=== PATIENT | female | born 1985 | race American Indian/Alaskan Native ===

== ENCOUNTER 2017-12-31 19:46 | Inpatient (IN) | payer BC ==
[2017-12-31] MEDS ORDERED: Lactated Ringer's 1,000 ML IV SCH (20:15)
--- NOTE | 2017-12-31 20:19 | OBHP ---
Datetime: 12/31/2017 19:07 IP Adm Impression: Term, intrauterine ; No Active Labor IP Adm Impression Other: Late Term IP Admit Plan: Admit to unit; Initiate labor induction protocol Admit Comment, IP Provider: 32yo with IUP at 41.1wks presents here today for induction of labor due to late . She currently denies any VB or LOF but feels good movements. car e with [address] with uncomplicated course. PMhx- unremarkable. OBHx: - X1, in 2009 Shx: None O: Appears well, Chest- CTA B/l Abd: Soft, NT, BS- present, No Tenderness [place]- Irrregular. FHR- Category 1, Vtx - presentation, Membranes intact GBS- Negative. Assessment: IUP at 41.1 weeks Early labor GBS - negative. Plan: Admit to LND, Cervidil for cervical ripening. Monitor closely for the onset and progress of labor. Pelvic Type - PN: Adequate Extremities - PN: Normal Abdomen - PN: Normal Back - PN: Normal Breast - PN: Normal Lungs - PN: Normal Heart - PN: Normal Thyroid - PN: Normal Neurologic - PN: Normal HEENT - PN: Normal General - PN: Normal Presentation-Admit: Vertex FHR - Baseline A Provider: 140 Membranes, Provider: Intact Gestation - Est Wks by US: 41.1 Vital Signs Provider: Reviewed IP Chief Complaint: Maternal discomfort NICHD Variability Prov Fetus A: Moderate 6-25bpm NICHD Accel Fetus A IP Provider: 15X15 FHR Category Provider Fetus A: Category I NICHD Decel Fetus A IP Provider: None Genitourinary Exam: Normal DTRs - PN: Normal
[2017-12-31 21:02] LABS: ALB/GLOB RATIO 1.1 (1.0-2.1); ALBUMIN 3.6 g/dL (3.5-5.0); ALT/SGPT 16 U/L (9-52); AST/SGOT 28 U/L (14-36); BLOOD UREA NITROGEN 7 mg/dL (7-17); CALCIUM 9.1 mg/dl (8.6-10.4); GFR AFRICAN-AMERICAN > 60; GFR NON-AFRICAN AMERICAN > 60
[2017-12-31 21:03] LABS: SQUAMOUS EPITHIAL 2 /hpf (0-5); URINE BILIRUBIN NEGATIVE (NEGATIVE); URINE BLOOD NEGATIVE (NEGATIVE); URINE CLARITY Clear (Clear); URINE COLOR Yellow (YELLOW); URINE GLUCOSE (UA) NORMAL (Normal); URINE LEUKOCYTE ESTERASE NEG Leu/uL (Negative); URINE NITRATE NEGATIVE (NEGATIVE); URINE PROTEIN NEGATIVE (NEGATIVE); URINE UROBILINOGEN NORMAL mg/dL (0.2-1.0)
[2017-12-31 21:21] LABS: BASO % 0.6 % (0.0-2.0); EOS % 0.7 % (0.0-4.0); LYMPH # 1.2 K/uL (1.0-4.3); LYMPH % 28.7 % (20.0-40.0); MEAN CELL VOLUME 92.6 fL (81.0-99.0); MEAN CORPUSCULAR HEMOGLOBIN 32.2 pg (27.0-31.0); MEAN CORPUSCULAR HGB CONC 34.8 g/dL (33.0-37.0); MEAN PLATELET VOLUME 8.5 fL (7.2-11.7); MONO # 0.5 K/uL (0.0-0.8); MONO % 10.8 % (0.0-10.0); NEUT # 2.5 K/uL (1.8-7.0); NEUT % 59.2 % (50.0-75.0); NRBC % 0.1 % (0.0-2.0); RBC 3.72 Mil/uL (3.80-5.20); RED CELL DISTRIBUTION WIDTH 13.7 % (11.5-14.5); WHITE BLOOD COUNT 4.2 K/uL (4.8-10.8)
[2017-12-31 21:43] VITALS: BMI 36.7
--- NOTE | 2018-01-01 07:41 | OBPN ---
Datetime: 01/01/2018 07:38 IP Procedures: Sterile Vag Exam FHR - Baseline A Provider: 130 IP Progress Note Comment: pt was examined at bed side ve 12/08/-2 cervidil removed NICHD Variability Prov Fetus A: Moderate 6-25bpm Dilatation, Provider: 1 Effacement, Provider: 30 Station, Provider: -2 Datetime: 12/31/2017 19:07 Membranes, Provider: Intact Gestation - Est Wks by US: 41.1 Presentation-Admit: Vertex Vital Signs Provider: Reviewed NICHD Accel Fetus A IP Provider: 15X15 FHR Category Provider Fetus A: Category I NICHD Decel Fetus A IP Provider: None
[2018-01-01] MEDS ORDERED: Sodium Citrate/Citric Acid 15 ml Sol PO ONE (07:43)
[2018-01-01] MEDS ORDERED: cefOXitin IV 2 gm in Saline 2 GM/50 ML BAG IVPB ONE (08:23)
[2018-01-01] MEDS ORDERED: ePHEDrine 50 mg/ml Inj ONE (09:04)
[2018-01-01] MEDS ORDERED: Morphine 1 mg/ml preservative-free Inj(Duramorph) ONE (09:05)
[2018-01-01] MEDS ORDERED: Oxycodone/Acetaminophen 5/325 mg Tab PO PRN (09:06)
[2018-01-01] MEDS ORDERED: cefOXitin 2 GM in Sodium Chloride 0.9% 100 ML IVPB ONE (10:00)
[2018-01-01] MEDS: Simethicone 80 mg Chewtab PO SCH ×2 (18:25→21:56)
--- NOTE | 2018-01-02 08:35 | OBPPN ---
Datetime: 01/02/2018 08:33 PP Pain Prov: Within normal limits PP Nausea Prov: Denies PP Flatus Prov: Yes PP BM Prov: No PP Breasts Prov: Normal PP Heart Prov: Normal PP Lungs Prov: Normal PP Abdomen/Uterus Prov: Normal PP Lochia Prov: Normal PP Vulva/Perineum Prov: Normal PP CVA Tenderness Prov: Normal PP Extremities Prov: Normal PP C/S Incision Prov: Normal PP Progress Prov: Normal PP Impression Prov: Normal progression PP Plan Prov: Continue present management PP Progress Note Prov: pt seen adn examined and reports pain controlled with medicain. pt is tolerat ing diet without nause, vomiting, ambuating, voiding, passing flatus, denies any fever, chills, cp, s ob, lightheadness, headahces. pt is . VSS PE GEN NAD< AAO x 3 RESP: CTAB?L CVS: RRR< +S1/S2 ABD: Soft, NT/ND, +BS, no guarding, no rebound tendneren no rigidty, INCSION C/D/I healing well FUNDUS: FIrm, at level of umbilucsi VE: Minimal lochia, non fouls smelling EXT: no calf tenderness, negative victorina's sign A/P s/pCxS POD #1 doing well -f/u am lab -pain manamgnet -encourage breast feedign adn ambaution IP PP Procedures: None Vital Signs Provider PP: Reviewed; Within Normal Limits
[2018-01-02 08:46] LABS: HEMOGLOBIN 10.5 g/dL (11.0-16.0); MEAN CELL VOLUME 93.7 fL (81.0-99.0); MEAN CORPUSCULAR HEMOGLOBIN 32.1 pg (27.0-31.0); MEAN CORPUSCULAR HGB CONC 34.3 g/dL (33.0-37.0); MEAN PLATELET VOLUME 9.1 fL (7.2-11.7); RBC 3.29 Mil/uL (3.80-5.20); RED CELL DISTRIBUTION WIDTH 13.6 % (11.5-14.5)
[2018-01-02 08:48] LABS: WHITE BLOOD COUNT 7.9 K/uL (4.8-10.8)
[2018-01-02] MEDS ORDERED: Bisacodyl 5mg EC Tab PO ONE (09:07)
[2018-01-02] MEDS: Simethicone 80 mg Chewtab PO SCH ×4 (09:55→21:43)
[2018-01-02] MEDS: Oxycodone/Acetaminophen 5/325 mg Tab PO PRN ×2 (17:05→23:02)
[2018-01-03] MEDS: Oxycodone/Acetaminophen 5/325 mg Tab PO PRN (06:11)
--- NOTE | 2018-01-03 09:14 | OBPPN ---
Datetime: 01/03/2018 09:12 PP Pain Prov: Within normal limits PP Nausea Prov: Denies PP Flatus Prov: Yes PP BM Prov: Yes PP Breasts Prov: Normal PP Heart Prov: Normal PP Lungs Prov: Normal PP Abdomen/Uterus Prov: Normal PP Lochia Prov: Normal PP Vulva/Perineum Prov: Normal PP CVA Tenderness Prov: Normal PP Extremities Prov: Normal PP C/S Incision Prov: Normal PP Progress Prov: Normal PP Impression Prov: Normal progression PP Plan Prov: Continue present management PP Progress Note Prov: pt seen adn examined and reports pain controlled with medicain. pt is tolerat ing diet without nause, vomiting, ambuating, voiding, passing flatus, denies any fever, chills, cp, s ob, lightheadness, headahces. pt is . VSS PE GEN NAD< AAO x 3 RESP: CTAB/L CVS: RRR< +S1/S2 ABD: Soft, NT/ND, +BS, no guarding, no rebound tendneren no rigidty, Fundus; Firm, below level of umbilucs INCSION C/D/I healing well FUNDUS: FIrm, at level of umbilucsi VE: Minimal lochia, non fouls smelling EXT: no calf tenderness, negative victorina's sign A/P s/pCxS POD #2 doing well -pain manamgnet -encourage breast feedign adn ambaution -antice d/c in AM Vital Signs Provider PP: Reviewed; Within Normal Limits
[2018-01-03] MEDS: Simethicone 80 mg Chewtab PO SCH ×3 (09:27→22:13)
[2018-01-03 17:40] VITALS: RESP 20
--- NOTE | 2018-01-04 08:40 | CP.PCM.DIS ---
Provider - Provider Date of Admission: 12/31/17 20:08 Attending physician: Donell Varghese Time Spent in preparation of Discharge (in minutes): 45 Diagnosis - Discharge Diagnosis (1) Status: Acute Hospital Course - Lab Results Lab Results: Most Recent Lab Values WBC 7.9 K/uL (4.8-10.8) D 01/02/18 08:38 RBC 3.29 Mil/uL (3.80-5.20) L 01/02/18 08:38 Hgb 10.5 g/dL (11.0-16.0) L 01/02/18 08:38 Hct 30.8 % (34.0-47.0) L 01/02/18 08:38 MCV 93.7 fL (81.0-99.0) 01/02/18 08:38 MCH 32.1 pg (27.0-31.0) H 01/02/18 08:38 MCHC 34.3 g/dL (33.0-37.0) 01/02/18 08:38 RDW 13.6 % (11.5-14.5) 01/02/18 08:38 Plt Count 147 K/uL (130-400) 01/02/18 08:38 MPV 9.1 fL (7.2-11.7) 01/02/18 08:38 Neut % (Auto) 59.2 % (50.0-75.0) 12/31/17 21:17 Lymph % (Auto) 28.7 % (20.0-40.0) 12/31/17 21:17 [place] % (Auto) 10.8 % (0.0-10.0) H 12/31/17 21:17 Eos % (Auto) 0.7 % (0.0-4.0) 12/31/17 21:17 Baso % (Auto) 0.6 % (0.0-2.0) 12/31/17 21:17 Neut # (Auto) 2.5 K/uL (1.8-7.0) 12/31/17 21:17 Lymph # (Auto) 1.2 K/uL (1.0-4.3) 12/31/17 21:17 [place] # (Auto) 0.5 K/uL (0.0-0.8) 12/31/17 21:17 Eos # (Auto) 0.0 K/uL (0.0-0.7) 12/31/17 21:17 Baso # (Auto) 0.0 K/uL (0.0-0.2) 12/31/17 21:17 Sodium 133 mmol/L (132-148) 12/31/17 20:46 Potassium 3.7 mmol/L (3.6-5.2) 12/31/17 20:46 Chloride 102 mmol/L (98-107) 12/31/17 20:46 Carbon Dioxide 23 mmol/L (22-30) 12/31/17 20:46 Anion Gap 11 (10-20) 12/31/17 20:46 BUN 7 mg/dL (7-17) 12/31/17 20:46 Creatinine 0.5 mg/dL (0.7-1.2) L 12/31/17 20:46 Est GFR ( Amer) > 60 12/31/17 20:46 Est GFR (Non-Af Amer) > 60 12/31/17 20:46 Random Glucose 80 mg/dL (65-105) 12/31/17 20:46 Calcium 9.1 mg/dl (8.6-10.4) 12/31/17 20:46 Total Bilirubin 0.6 mg/dL (0.2-1.3) 12/31/17 20:46 AST 28 U/L (14-36) 12/31/17 20:46 ALT 16 U/L (9-52) 12/31/17 20:46 Alkaline Phosphatase 148 U/L (38-126) H 12/31/17 20:46 Total Protein 6.8 g/dL (6.3-8.3) 12/31/17 20:46 Albumin 3.6 g/dL (3.5-5.0) 12/31/17 20:46 Globulin 3.3 gm/dL (2.2-3.9) 12/31/17 20:46 Albumin/Globulin Ratio 1.1 (1.0-2.1) 12/31/17 20:46 Urine Color Yellow (YELLOW) 12/31/17 20:46 Urine Clarity Clear (Clear) 12/31/17 20:46 Urine pH 7.0 (5.0-8.0) 12/31/17 20:46 Ur Specific [place] 1.023 (1.003-1.030) 12/31/17 20:46 Urine Protein Negative mg/dL (NEGATIVE) 12/31/17 20:46 Urine Glucose (UA) Normal mg/dL (Normal) 12/31/17 20:46 Urine Ketones Negative mg/dL (NEGATIVE) 12/31/17 20:46 Urine Blood Negative (NEGATIVE) 12/31/17: Urine Nitrate Negative (NEGATIVE) 12/31/17 20: Urine Bilirubin Negative (NEGATIVE) 12/31/17 20:46 Urine Urobilinogen Normal mg/dL (0.2-1.0) 12/31/17 20: Ur Leukocyte Esterase Neg Casi/uL (Negative) 12/31/17: Urine WBC (Auto) < 1 /hpf (0-5) 12/31/17 20:46 Urine RBC (Auto) 3 /hpf (0-3) 12/31/17:46 Ur Squamous Epith Cells 2 /hpf (0-5) 12/31/17:46 Blood Type O POSITIVE 12/31/17 20:46 Antibody Screen Negative 12/31/17 20:46 - Hospital Course Hospital Course: 32 yo F who initially presented at 41w1d for induction of labor due to late term. Patient was observed in labor, but ultimately taken for section, which she tolerated well without any complications. Postop labs remained WNL. Today, patient reports pain is well controlled on current regimen. She is ambulating, though with some pain. She is passing gas, but has not yet had a bowel movement. Lochia is mild. She denies any urinary symptoms. She follows up with Dr. Abad as her primary OBGYN. She denies any chest pain , shortness of breath, fever, chills, headache, nausea, vomiting, diarrhea, constipation. Patient was given prescriptions for pain medications, and instructions on follow up. All questions were answered to her satisfaction, and she was discharged to home. Discharge Exam - Head Exam Head Exam: ATRAUMATIC, NORMOCEPHALIC - Eye Exam Eye Exam: EOMI, Normal appearance, PERRL - ENT Exam ENT Exam: Mucous Membranes Moist - Neck Exam Neck exam: Normal Inspection - Respiratory Exam Respiratory Exam: Clear to PA & Lateral, NORMAL BREATHING PATTERN - Cardiovascular Exam Cardiovascular Exam: RRR, +S1, +S2 - GI/Abdominal Exam GI & Abdominal Exam: Normal Bowel Sounds, Soft. absent: Distended, Firm, Guarding, Tenderness Additional comments: Fundus firm, below umbilicus - Extremities Exam Extremities exam: normal inspection - Neurological Exam Neurological exam: Alert, Oriented x3 - Psychiatric Exam Psychiatric exam: Normal Affect, Normal Mood - Skin Skin Exam: Dry, Intact Discharge Plan - Discharge Medications Prescriptions: Ibuprofen [Motrin] 600 mg PO Q6H PRN #30 tab PRN Reason: Pain, Mild (1-3) Ibuprofen [Motrin Tab] 600 mg PO Q4 PRN #30 tab PRN Reason: Pain, Mild (1-3) oxyCODONE/Acetaminophen [Percocet 5/325 mg Tab] 1 tab PO Q4H PRN #10 tab PRN Reason: Pain, Moderate (4-7) - Follow Up Plan Condition: GOOD Disposition: HOME/ ROUTINE Additional Instructions: 1. Continue pain medications as needed 2. Continue taking vitamins as long as your are 3. No intercourse or tampon use, or anything inserted in the vagina for 6 weeks 4. Follow up with Dr. Abad in one week for removal of javi 5. Follow up with your primary OBGYN in 6 weeks 6. For any new or worsening concerns, return to the ER
[2018-01-04] MEDS: Simethicone 80 mg Chewtab PO SCH ×3 (09:32→17:50)
[2018-01-04] MEDS ORDERED: Influenza Vaccine 60 mcg/0.5 mL SYR (4YR UP) IM ONE (12:27)
--- NOTE | 2018-01-04 15:20 | OBPPN ---
Datetime: 01/04/2018 14:34 PP Pain Prov: Within normal limits PP Nausea Prov: Denies PP Flatus Prov: Yes PP BM Prov: Yes PP Comments Phys Exam Prov: fudis below um incision clean and dry PP Impression Prov: Normal progression PP Plan Prov: Continue present management; Discharge PP Progress Note Prov: Patient seen and examined at bedside. Per nursing staff, no acute events over night. Patient reports pain is well controlled on current regimen. Lochia is mild. Patient is ambulat ing without difficult. Passing flatus and BM. No nausea or vomiting. Tolerating diet. Denies chest pa in, shortness of breath, fever, chills, diarrhea, constipation, urinary symptoms. VS: BP 125/78, HR 85, T 98.2 Gen: NAD, AAOx3 CV: RRR, +S1, +S2 Pulm: CTA b/l Abd: Soft, nontender, fundus firm below umbilicus Ext: Warm. No clubbing, cyanosis, or edema A/P 32 yo , POD#3 s/p section - Continue routine care - Pain control - Encourage ambulation and hydration - Encourage - Will discharge today; patient to follow up with primary OBGYN for removal of javi and routine care - Discussed plan with Dr. Favian BRADSHAW PP Procedures: None Vital Signs Provider PP: Reviewed; Within Normal Limits
--- NOTE | 2018-01-04 15:22 | OBDCSUM ---
Datetime: 01/04/2018 10:31 Discharged to, Provider: Home Follow up at, Provider: [email or web address] Disch Instr Activity: Normal activity Disch Instr Diet: Regular Discharge Diagnosis, Provider: Term Delivered Follow up in weeks, Provider: 3--18 Disch Referrals: None Disch Activity Restrictions: No lifting; Minimize stair-climbing; No sexual activity; Nothing in vag kevon - [place], tampons, douche Discharge Comment, Provider: no sex percocet prn
--- NOTE | 2018-01-04 19:42 | OP ---
PREOPERATIVE DIAGNOSIS: A 32-year-old 2, para 0 at 41 weeks and 2 days with nonreassuring tracing. POSTOPERATIVE DIAGNOSIS: A 32-year-old 2, para 0 at 41 weeks and 2 days with nonreassuring tracing. SURGEON: Odilon Ballesteros MD SALES ORDER ADMINISTRATOR SURGEON: None. ANESTHESIA: General anesthesia. ANESTHESIOLOGIST: . COMPLICATIONS: None. PROCEDURE PERFORMED: Primary section. SALES ORDER ADMINISTRATOR: Dr. Maddox, who was present throughout the surgery for exposure, retraction, pushing at the time of the delivery. DESCRIPTION OF PROCEDURE: After informed consent was obtained, the patient was brought to the operating room and placed on table, where spinal anesthesia was given. Once the anesthesia was given, the patient was prepped and draped in normal sterile fashion. About 2 cm above the pubic bone, a skin incision was made with a knife, the subcutaneous cut with a Bovie. The fascia was then excised on both the sides using curved Woody scissors. The fascia was first from the site of the umbilicus and other site of the pubic bone, rectus muscle was . Peritoneum was incised and we went into the abdominal cavity. Bladder blade was placed. Bladder flap was created. Lower uterine segment incision was made with a knife. We did this on both sides using curved Woody scissors. Baby delivered in RICHARD position. Cord was clamped and cut. Baby was handed to the awaiting hospital cna. After that uterus was cleared of all the clots and debris. Uterine incision was closed using #1 Vicryl in running interlocking fashion, second layer was closed with the same stitch. A lot of irrigation was done. Then the cul-de-sac was cleared of all the clots and debris. Uterus was returned back to abdominal cavity. Gutters were cleared of all the clots and debris. After that, peritoneum was closed using 2-* Vicryl in running interlocking fashion. The muscle was closed using 2-* Vicryl in running interlocking fashion. Fascia was closed using #1 Vicryl in running interlocking fashion. Subcutaneous tissue was closed with * Vicryl in interrupted fashion. Skin was closed using 3-* Monocryl curved needle. Patient tolerated the procedure well. Lap, sponge, and instrument counts were correct x2. Odilon Ballesteros MD [facility] # [id number]
[2018-01-04 22:33] VITALS: BP 125/78; PULSE 85; TEMP 98.2; O2SAT 100
== END 2018-01-04 18:20 | disposition home or self-care (01) | DRG 766 ==
LOC: C.EROB 19:46 → C.4D 20:08 → C.4M 01-01 13:55
PROVIDERS: ADMIT Obstetrics & Gynecology; ATTEND Obstetrics & Gynecology
PROC: 10D00Z1 Extraction of Products of Conception, Low, Open Approach (ICD-10-PCS; principal; 2017-12-31)
DX: O76 Abnormality in fetal heart rate and rhythm complicating labor and delivery (principal); O48.0 Post-term pregnancy; Z3A.41 41 weeks gestation of pregnancy; Z37.0 Single live birth